=== PATIENT | female | born 1970 | race Hispanic/Latino ===

== ENCOUNTER 2016-10-30 12:18 | Emergency (ER) | payer OTHER ==
[2016-10-30 12:18] VITALS: BMI 27.4
[2016-10-30 12:38] VITALS: BP 139/91; PULSE 69; RESP 16; TEMP 97.4; O2SAT 100
--- NOTE | 2016-10-30 14:40 | ED PDOC ---
HPI: Psych/Substance Abuse Time Seen by Provider: 10/30/16 12:46 Chief Complaint (Nursing): Psychiatric Evaluation Chief Complaint (Provider): Anxiety History Per: Patient Additional Complaint(s): Pt reports intermittent anxiety X 1 week, was given Xanax by PMD. Denies suicidal/homicidal ideation, hearing voices. Past Medical History Reviewed: Nursing Documentation, Vital Signs Vital Signs: Last Vital Signs Temp 97.4 F L 10/30/16 12:36 Pulse 69 10/30/16 12:36 Resp 16 10/30/16 12:36 BP 139/91 H 10/30/16 12:36 Pulse Ox 100 10/30/16 12:36 - Medical History PMH: Anxiety, Arthritis, Asthma, Bipolar Disorder Denies: Chronic Kidney Disease - Family History Family History: States: Unknown Family Hx - Social History Current smoker - smoking cessation education provided: Yes - Home Medications Home Medications: Ambulatory Orders Medication Instructions Recorded Atropine Sulf/Hyoscyamine Barbosa 1 tab PO TID 01/29/15 [] Desvenlafaxine Succinate [Pristiq] 50 mg PO DAILY 01/29/15 Montelukast [Singulair] 10 mg PO DAILY 01/29/15 Pancreatin [Creon] 1 cap PO TID 01/29/15 Pantoprazole Sodium [Protonix] 40 mg PO DAILY 01/29/15 Naproxen [Naprosyn Tab] 375 mg PO Q8 PRN #21 tab 01/14/16 oxyCODONE/Acetaminophen [Percocet 1 ea PO Q6 PRN #6 tab 01/14/16 5/325 mg Tab] - Allergies Allergies/Adverse Reactions: Allergies Allergy/AdvReac Type Severity Reaction Status Date / Time No Known Allergies Allergy Verified 10/30/16 12:36 Review of Systems Constitutional: Negative for: Fever Cardiovascular: Negative for: Chest Pain Respiratory: Negative for: Cough Skin: Negative for: Rash, Lesions Neurological: Negative for: Confusion, Seizures, Altered Mental Status, Headache , Dizziness Psych: Positive for: Anxiety. Negative for: Depression, Suicidal ideation Physical Exam - Reviewed Nursing Documentation Reviewed: Yes Vital Signs Reviewed: Yes - Physical Exam Appears: Positive for: Well, No Acute Distress Skin: Positive for: Normal Color, Warm, Dry Eye Exam: Positive for: Normal appearance, EOMI, PERRL Cardiovascular/Chest: Positive for: Regular Rate, Rhythm Respiratory: Positive for: Normal Breath Sounds Extremity: Positive for: Normal ROM Neurologic/Psych: Positive for: Alert, Oriented. Negative for: Motor/Sensory Deficits - ECG O2 Sat by Pulse Oximetry: 100 Medical Decision Making Medical Decision Makin yo with anxiety. - medical clearance - Crisis evaluation Disposition - Clinical Impression Clinical Impression: Anxiety - Disposition Disposition: Routine/Home Disposition Time: 14:35 Condition: STABLE Additional Instructions: FOLLOW-UP WITH [facility] RECOMMENDED. Instructions: Anxiety (ED) Forms: [facility] (Albanian)
== END 2016-10-30 14:47 | disposition home or self-care (01) ==
LOC: H.ER 12:18
DX: F41.9 Anxiety disorder, unspecified (principal); F31.9 Bipolar disorder, unspecified

== ENCOUNTER 2017-08-13 15:11 | Emergency (ER) | payer OTHER ==
[2017-08-13 15:11] VITALS: BMI 27.4
[2017-08-13 15:20] VITALS: BP 125/85; PULSE 85; TEMP 98.8; O2SAT 100
--- NOTE | 2017-08-13 15:55 | ED PDOC ---
HPI: Asthma Time Seen by Provider: 08/13/17 15:23 Chief Complaint (Nursing): Shortness Of Breath Chief Complaint (Provider): Asthma attack History Per: Patient History/Exam Limitations: no limitations Onset/Duration Of Symptoms: Hrs (x3) Current Symptoms Are (Timing): Better Additional Complaint(s): 47 year old female, with a past medical hx of asthma, presents to the ED complaining of having an asthma attack which started around 13:00 today. 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 She had to stop working and went back to her department and took albuterol but without relief. After an hour and a half, she used her symbicort and albuterol multiple times with minimal relief. She reports feeling better just about 5 minutes [employer]PER[employer] to the hospital. Patient is complaining of shakiness and mild chest tightness. Patient has had to take albuterol but has never been intubated. PCP: Dr. Chi Past Medical History Reviewed: Historical Data, Nursing Documentation, Vital Signs Vital Signs: Last Vital Signs Temp 98.8 F 08/13/17 15:17 Pulse 85 08/13/17 15:17 Resp 18 08/13/17 15:17 BP 125/85 08/13/17 15:17 Pulse Ox 100 08/13/17 15:17 - Medical History PMH: Anxiety, Arthritis, Asthma, Bipolar Disorder, Gastritis, GERD Denies: Diabetes, Hepatitis, HIV, HTN, Chronic Kidney Disease, Seizures, Sexually Transmitted Disease - Surgical History Other surgeries: Knee and ankle surgery - Family History Family History: States: No Known Family Hx - Social History Current smoker - smoking cessation education provided: Yes (1 pack per day) - Home Medications Home Medications: Ambulatory Orders Medication Instructions Recorded Atropine Sulf/Hyoscyamine Barbosa 1 tab PO TID 01/29/15 [] Desvenlafaxine Succinate [Pristiq] 50 mg PO DAILY 01/29/15 Montelukast [Singulair] 10 mg PO DAILY 01/29/15 Pancreatin [Creon] 1 cap PO TID 01/29/15 Pantoprazole Sodium [Protonix] 40 mg PO DAILY 01/29/15 Naproxen [Naprosyn Tab] 375 mg PO Q8 PRN #21 tab 01/14/16 oxyCODONE/Acetaminophen [Percocet 1 ea PO Q6 PRN #6 tab 01/14/16 5/325 mg Tab] Albuterol HFA [Ventolin HFA 90 2 puff IH Q4H PRN #1 inh 08/13/17 mcg/actuation (8 g)] Budesonide/Formoterol Fumarate 2 puff IH BID #1 aer 08/13/17 [Symbicort] - Allergies Allergies/Adverse Reactions: Allergies Allergy/AdvReac Type Severity Reaction Status Date / Time No Known Allergies Allergy Verified 08/13/17 15:17 Review of Systems ROS Statement: Except As Marked, All Systems Reviewed And Found Negative (as per HPI) Cardiovascular: Positive for: Other (Mild chest tightness) Respiratory: Positive for: Shortness of Breath Neurological: Positive for: Other (Shakiness) Physical Exam - Reviewed Nursing Documentation Reviewed: Yes Vital Signs Reviewed: Yes - Physical Exam Appears: Positive for: Well, Non-toxic, No Acute Distress Head Exam: Positive for: ATRAUMATIC, NORMOCEPHALIC Skin: Positive for: Warm, Dry Neck: Positive for: Painless ROM, Trachea Midline Cardiovascular/Chest: Positive for: Regular Rate, Rhythm. Negative for: Murmur Respiratory: Positive for: Wheezing (occasional expiratory wheeze). Negative for: Accessory Muscle Use, Rhonchi, Respiratory Distress Lymphatic: Negative for: Adenopathy Neurologic/Psych: Positive for: Alert, Other (mild upper extremity tremor and mildly anxious). Negative for: Motor/Sensory Deficits - ECG O2 Sat by Pulse Oximetry: 100 (RA) Pulse Ox Interpretation: Normal Medical Decision Making Medical Decision Making: Initial Impression: Asthma attack resolving Stable for dc. Advised to stay indoors but patient reports that she has no more "days" to take time off. Reviewed medications and need to take symbicort as prescribed (not as a rescue medication.) Tobacco education provided. (3min) Scribe Attestation: Documented by William Moreland acting as a scribe for Laurel Spears MD. Provider Scribe Attestation: All medical record entries made by the Scribe were at my direction and personally dictated by me. I have reviewed the chart and agree that the record accurately reflects my personal performance of the history, physical exam, medical decision making, and the department course for this patient. I have also personally directed, reviewed, and agree with the discharge instructions and disposition. Disposition - Clinical Impression Clinical Impression: Asthma attack Counseled Patient/Family Regarding: Studies Performed, Diagnosis, Need For Followup, Rx Given, Smoking Cessation - Disposition Referrals: Marcus Chi MD [Staff Provider] - 08/14/17 Disposition: Routine/Home Disposition Time: 15:35 Condition: IMPROVED Prescriptions: Albuterol HFA [Ventolin HFA 90 mcg/actuation (8 g)] 2 puff IH Q4H PRN #1 inh PRN Reason: ASTHMA Budesonide/Formoterol Fumarate [Symbicort] 2 puff IH BID #1 aer Instructions: Asthma, Adult (DC) Forms: [facility] ED School/Work Excuse
[2017-08-13 16:06] VITALS: RESP 19
== END 2017-08-13 16:06 | disposition home or self-care (01) ==
LOC: H.ER 15:11
DX: J45.901 Unspecified asthma with (acute) exacerbation (principal)

== ENCOUNTER 2018-04-30 08:06 | Day surgery (SDC) | payer OTHER ==
[2018-04-15 09:28] VITALS: BMI 24.7
[2018-04-30] MEDS ORDERED: Lactated Ringer's 1,000 ML IV ONE (08:39)
[2018-04-30] MEDS ORDERED: Propofol 10 mg/ml Inj (20 ML) ONE (13:34)
[2018-04-30] MEDS ORDERED: Ropivacaine 0.5% 30ML IV ONE (13:37)
[2018-04-30] MEDS ORDERED: Lidocaine 1% w Epi 1:100,000 Inj ONE (13:41)
[2018-04-30] MEDS ORDERED: Midazolam 2 MG/2 ML VIAL ONE (14:32)
[2018-04-30] MEDS ORDERED: Lidocaine/Epi 1% 1:100000 20 ML IJ ONE (15:30)
[2018-04-30] MEDS ORDERED: Liquid Adhesive TOP ONE (15:58)
--- NOTE | 2018-04-30 16:19 | PCM.SURG1 ---
Surgeon's Initial Post Op Note - Surgeon's Notes Surgeon: Verona Roche MD Retirement Benefits Specialist: Sadaf Diez PA-C; Charlie Suarez DPM Type of Anesthesia: General Endo Pre-Operative Diagnosis: Left shoulder labral tear, partial RTC tear Operative Findings: see op report Post-Operative Diagnosis: same as pre-op dx Operation Performed: left shoulder arthroscopy, extensive debridement, subacromial decompression, mini open subpec biceps tenodesis Specimen/Specimens Removed: none Estimated Blood Loss: EBL {In ML}: 10 Date of Surgery/Procedure: 04/30/18 Time of Surgery/Procedure: 14:30
[2018-04-30] MEDS ORDERED: HYDROmorphone 0.5 mg/0.5 ml ISec IVP PRN (16:21)
[2018-04-30] MEDS ORDERED: Lactated Ringer's 1,000 ML IV SCH (16:30)
[2018-04-30 17:45] VITALS: PULSE 64
[2018-04-30 18:45] VITALS: BP 122/73; RESP 20; TEMP 98.5; O2SAT 99
--- NOTE | 2018-04-30 22:59 | OP ---
PROCEDURE DATE: 04/30/2018 PREOPERATIVE DIAGNOSES: 1. Left shoulder biceps tenosynovitis. 2. Impingement. 3. Labral tear. 4. Partial rotator cuff tear. POSTOPERATIVE DIAGNOSES: 1. Left shoulder synovitis. 2. Type 2 superior labrum anterior and posterior tear. 3. Anterior labral tear. 4. Partial subscapularis tear. 5. Impingement. 6. Bursitis. 7. Subacromial adhesions. PROCEDURES PERFORMED: 1. Right shoulder arthroscopy, complete synovectomy. 2. Extensive debridement of rotator cuff and labrum. 3. Mini-open sub-pectoral biceps tenodesis. 4. Subacromial decompression with acromioplasty. 5. Lysis of adhesions without manipulation. ATTENDING PHYSICIAN: Verona Roche MD RN PATIENT SERVICES: Sadaf Diez PA-C EBL: 20 mL. SPECIMENS: None. CLOSURE: Primary. FLUIDS: See anesthesia sheet. ANTIBIOTICS: See anesthesia sheet. COMPLICATIONS: None. INDICATIONS: After failing a course of nonoperative therapy, the patient elected to undergo the above procedures. In the office the risks and possible complications of the shoulder arthroscopy were discussed in detail with the patient. These risks include, but are not limited to, continued pain, lack of motion, infection, vascular injury, and nerve injury including axillary nerve dysfunction, reflex sympathetic dystrophy, compartment syndrome, limb loss, and . The patient expressed an understanding of the risks and possible benefits of the procedure, and was also made aware of the alternatives to surgery. An informed consent was obtained, and was checked immediately preop. Procedure 1: The patient was correctly identified in the holding area and the right shoulder was marked with the surgeon's initials. The patient was transported to the operating room and placed in the supine position and general and regional interscalene block was used. A preoperative orthopedic examination revealed a passive range of motion of 160 degrees of forward elevation, 50 degrees of external rotation, and 130 degrees of abduction. Stability examination revealed no instability. Procedure 2: The patient was then placed in a beach chair position utilizing the beach chair positioning device. The patient's head was stabilized and the indicated upper extremity was prepped and draped in the standard surgical fashion. The anatomic structures were outlined with a skin marker, and 1% lidocaine with epinephrine was injected into the posterior, anterior, and lateral portal areas. A #21-gauge spinal needle was placed in the glenohumeral joint from the posterior portal and 10 mL of sterile saline was injected into the glenohumeral joint. Return of fluid indicated correct needle placement into the joint. The needle was then withdrawn and a #11 blade was used to make a 1-cm incision at the posterior portal site. Next, the arthroscopic blunt trocar was inserted into the glenohumeral joint. A #21-gauge spinal needle was placed through the anterior rotator interval, and the anterior portal was made with a #11 blade after the spinal needle was withdrawn. A 7-mm cannula was then inserted after the skin incision was made and the arthroscopic probe was then used to examine the internal structures of the glenohumeral joint. With the shoulder in abducted and externally rotated position, the articular surface of the rotator cuff was visualized. The arthroscope and probe were then switched from posterior to anterior. The posterior labrum, posterior capsule, and biceps anchor reflection was then inspected with the arthroscope in the anterior portal position. Examination of the glenohumeral joint revealed: 1. Synovitis. 2. Type 2 SLAP tear. 3. Anterior labral tear. 4. Partial subscapularis tear. Using the probe, the labrum was circumferentially assessed for tear. Tears were note at anterior labrum. Using the 4.0 motorized shaver and radiofrequency probe, the torn edges of the labrum were debrided until stable rim, preventing any further propagation. Excessive glenohumeral synovitis was cleared with a 4.0 mm full radius shaver. The hypertrophic, erythematous synovium was resected. Hemostasis was maintained with the radiofrequency device. The biceps pathology was addressed with biceps tenodesis. Upon careful arthroscopic evaluation of biceps tendon and its anchor site at the labrum, it was noted to be highly frayed and tears not amenable to repair. Biceps tenotomy was performed using the arthroscopic scissors. Afterwards, a small 2-cm incision was marked within the axillary fold and injected with 2 mL of 1% lidocaine with epinephrine. Skin incision was made using a 15 blade. Deeper dissection was carried out with scissors, and interval between pectoralis major tendon and coracobrachialis. Biceps tendon was identified sitting within the biceps groove. It was removed from the groove and found to be erythematous with intersubstance fraying and tearing. Torn edges of the tendon were incised using 15 blade and a 2.0 FiberLoop was used to whip stitch the tendon. The elbow was taken through flexion and extension to identify the appropriate site of tenodesis within the bicipital groove with proper tensioning of muscle belly. For tenodesis, we used the Arthrex bicortical button. The free ends of FiberLoop were loaded onto the metal cortical button. The diameter of the tendon was measured using the guide. Using appropriate drill bit, bicortical drill hole was made at the top of bicipital groove. Then, using the appropriate size reamer, as determined after measuring the width of biceps tendon, the near cortex was drilled approximately 1.5 cm in depth. The cortical button was loaded on the handle and passed through the drilled hole, then flipped at the far cortex. The biceps tendon was delivered into the drill hole and was sutured and secured with FiberLoop. Normal saline irrigation was used to remove all the debris and loose bodies. Skin edges were brought closer using 2.0 Vicryl sutures and closed 4.0 nylon sutures. Rotator cuff debridement statement. ____ Examination of the subacromial space: 1. Bursitis. 2. Impingement. 3. Adhesions. Visualization of the subacromial space was difficult due to excessive bursitis. A bursectomy was performed using a combination of radiofrequency device as well as a 4.0-mm full radius motorized shaver. The soft tissue on the undersurface of the acromion was debrided utilizing the 4.0-mm full radius shaver and the radiofrequency device was used for hemostasis. At this point, the coracoacromial ligament was released with the radiofrequency device and the acromial branch of the thoracoacromial artery was coagulated with the same instrument. Subacromial decompression was performed with a 4.0-mm conical yas using both the medial portal and the "cutting-block" precision acromioplasty technique from the posterior portal. The undersurface of the acromion was resected to a flat, smooth surface to allow unrestricted excursion of the rotator cuff. There were multiples adhesions noted within the subacromial space. Adhesions were found within the anterior, posterior, and lateral gutters. These adhesions were scarred into anterior and posterior portion of rotator cuff limiting range of motion. Using the 4.0-mm motorized shaver and radiofrequency probe, adhesions were debrided and removed. All the bleeding surfaces were coagulated. Afterwards, the shoulder was taken through range of motion and there was a notable improvement in range of motion and unrestrictive excursion of rotator cuff muscle and tendons. The subacromial space was then irrigated with sterile saline, and closure was instituted with sutures. A dressing was placed consisting of Xeroform, 4x4's, ABD pads, and tape. The patient was placed in a sling with an ABD pad in the axilla. The patient was then placed in a supine position and extubated without incident. The patient was transferred to the recovery room in stable condition, having tolerated the procedure well. Postoperatively, the patient will be maintained in an abduction sling, also provided with my rehab protocol, defining the restriction and sling use for 6 weeks. Followup in days. During this procedure, I was assisted by Sadaf Diez PA-C, who assisted in positioning the patient on the operating room table as well as transferring the patient from the operating room table to the recovery room stretcher. In addition, Sadaf Diez PA-C, assisted me during the actual operative procedure by positioning the patient's extremity to allow for easier arthroscopic access to all areas of the joint. The presence of Sadaf Diez PA-C, as my operative bilingual administrative assistant, was medically necessary to ensure the utmost safety of the patient in the pre, intra-, and postoperative periods. Verona Roche MD
== END 2018-04-30 18:30 | disposition home or self-care (01) ==
LOC: H.OPSURG 08:06
PROVIDERS: ATTEND Orthopaedic Surgery
DX: S43.432A Superior glenoid labrum lesion of left shoulder, initial encounter (principal); M22.41 Chondromalacia patellae, right knee; M75.42 Impingement syndrome of left shoulder; M75.112 Incomplete rotator cuff tear or rupture of left shoulder, not specified as traumatic; M75.52 Bursitis of left shoulder; M75.02 Adhesive capsulitis of left shoulder; X58.XXXA Exposure to other specified factors, initial encounter
CPT/HCPCS: 29821; 29825; 29826; 29827; 29828; C1776; J0171; J0690; J2001; J2250; J2704; J3010; J7030; J7120